=== PATIENT | female | born 1960 | race Caucasian/White ===

== ENCOUNTER 2017-09-19 07:35 | Emergency (ER) | payer OTHER ==
[2017-09-19 08:01] VITALS: BP 144/92
[2017-09-19] MEDS ORDERED: ACETAMINOPHEN 500 MG TABLET PO ONE (08:13)
[2017-09-19] MEDS ORDERED: IBUPROFEN 200 MG TABLET PO ONE (08:13)
--- NOTE | 2017-09-19 08:13 | ED Physician Documentation ---
Upper Respiratory Symptoms - HISTORIAN Historian: patient - HPI Stated Complaint: N/V, body aches and sore throat Chief Complaint: Cough/ Upper Respiratory Onset: other (yesterday) Associated Symptoms: fever, chills, sore throat, hoarseness, other (dry cough). denies: sweating, earache, runny nose, sinus pain, sinus drainage, allergy, hay fever, chest pain, bloody cough, productive cough, shortness of breath, hurts to breathe, headache Further Comments: yes (57 year old female patient presents with complaints of "not feeling well". C/O sore throat, body aches, dry cough, vomiting yesterday. States her grand children stayed with her last week and they were sick. Concerned she has strep. Took Aleve yesterday. Is able to keep down pedialyte.) - ROS CONST/EYES: denies: weakness, eye redness, eye itching, other CVS/RESP: none LYMPH: denies: leg swelling, rash, swollen glands, ankle swelling, other GI/: vomiting (yesterday), nausea. denies: abdominal pain, diarrhea, black stools NEURO/PSYCH: denies: fainting, dizziness, confusion, anxiety, depression, other MS/SKIN: denies: joint pain, muscle aches, rash, other - PAST HX Lung Disease: COPD Allergies/Adverse Reactions: Allergies Allergy/AdvReac Type Severity Reaction Status Date / Time Penicillins Allergy Verified 09/19/17 08:00 Home Medications: Ambulatory Orders Medication Instructions Recorded NK [NK] 09/19/17 - SOCIAL HX Smoking History: cigarettes - FAMILY HX Family History: denies: none - VITAL SIGNS Vital Signs: Vital Signs Temp Pulse Resp BP Pulse Ox 98.4 F 105 H 18 144/92 96 09/19/17 07:36 09/19/17 07:36 09/19/17 07:36 09/19/17 07:36 09/19/17 07:36 - REVIEWED ASSESSMENTS Nursing Assessment Reviewed: Yes Vitals Reviewed: Yes ED Results Lab/Radiology - Orders Orders: ED Orders Category Date Time Status INFLUENZA A&B Stat Lab 09/19/17 08:09 Ordered Rapid Strep [GRP A STREP SCREEN] Stat Lab 09/19/17 Ordered Acetaminophen [Tylenol Extra Strength] Med 09/19/17 08:13 Discontinued 1,000 mg PO NOW ONE Ibuprofen [Advil] Med 09/19/17 08:13 Discontinued 600 mg PO NOW ONE Upper Respiratory Symptoms - EXAM General Appearance: mild distress EENT: eyes nml inspection, nml ENT inspection, lids & conjunct. nml, PERRL, ear nml, nose nml, pharynx nml, airway nml, hoarse voice, other (extremely poor dentaliga; wide spread decay) Respiratory: no resp. distress, no pain on inspiration, speaks full sentences, wheezes (faint expiratory wheeze on right), no pleuritic chest pain Abdomen: non-tender, no organomegaly, nml bowel sounds, no distention CVS: reg rate & rhythm, heart sounds normal, equal pulses, no murmur, no gallop , PMI nml, no JVD, no friction rub, 24 Skin: color nml, no rash, warm,dry Extremities: non-tender, normal range of motion, no evidence of injury, no edema , J, [employer] Neuro/Psych: oriented x3, neuro intact, mood/affect nml, CN's nml as tested Discharge Clincal Impression: Common cold, Sore throat (viral) Referrals: Primary Doctor,No [Primary Care Provider] - 2 Days Additional Instructions: Stop smoking Cough drops as needed for cough and sore throat. Increase your fluid intake juices, hot tea, non-caffeinated beverages Vitamin C may be helpful in decreasing the length of your cold. Use a humidifier in the room where you sleep. You can also sit in a steam filled bathroom 1-2 times a day. Tylenol every 4 hours 650mg -1000mg (do not exceed 4000mg in 24 hours) as needed for fever, pain and body aches. Alternate with Ibuprofen Ibuprofen 600-800mg every 6 hours as needed for fever, pain and body aches. See your primary care doctor if your symptoms become worse or do not improve in the next 2-3 days. Diet: Clear liquids Sprite/7-up Juices apple, white grape Gatorade/Powerade Jello Popsicles When tolerating clear liquids, advance to bland/brat diet - such as crackers, rice, Bananas, apples/applesauce or toast Return to the emergency department or call your doctor, if you are having severe abdominal pain, fever >101.0, or if there is blood in the vomit or diarrhea, or you cannot keep down liquids or solid food. Condition: Stable Disposition: 01 HOME, SELF-CARE Decision to Admit: NO Decision Time: 08:33
== END 2017-09-19 08:35 | disposition home or self-care (01) ==
LOC: ED 07:35
DX: J00 Acute nasopharyngitis [common cold] (principal); J44.9 Chronic obstructive pulmonary disease, unspecified
CPT/HCPCS: 87070; 87400; 87880; 99282; 99283